=== PATIENT | female | born 1930 | race Caucasian/White ===

== ENCOUNTER 2017-05-06 07:25 | Emergency (ER) | payer MEDICARE, OTHER ==
[~2017-05-06] VITALS: Ht 162.6 cm; Wt 90.0 kg
[~2017-05-06 07:25] MED LIST: AMIODARONE; DOCU-150 PO; ELIQUIS; FURO-151 PO; MEMA10TA11 PO; OMEP20TA80 PO; P20 PO; SERT50TA PO; SUCR1TAB PO
[2017-05-06] MEDS ORDERED: ELIQUIS (08:22)
[2017-05-06] MEDS ORDERED: [UNRECOGNIZED DRUG - OTHER] (08:24)
[2017-05-06] MEDS ORDERED: ONDANSETRON HCL 4MG/2ML VIAL IV STA (08:27)
[2017-05-06] MEDS ORDERED: MORPHINE SULFATE 4 MG/ML CPJ (NOT FOR IM USE) IV STA (08:27)
[2017-05-06] MEDS ORDERED: SODIUM CHLORIDE 0.9% 1,000 ML IV ONE (08:27)
[2017-05-06 08:48] LABS: BASOPHILS % 0.3 % (0.0-2.0); EOSINOPHILS % 0.5 % (0.0-5.0); HEMOGLOBIN. 12.4 g/dL (12.0-16.0); LYMPHOCYTES % 9.5 % (20.0-50.0); MEAN CORPUSCULAR VOLUME 92.2 fL (81.0-99.0); MEAN PLATELET VOLUME 7.5 fl (7.4-10.4); NEUTROPHILS % 83.7 % (40.0-76.0); PLATELET 210 x1000/uL (130-400); RED BLOOD CELL COUNT 4.12 mill/uL (4.2-5.4); RED CELL DISTRIBUTION WIDTH 17.7 % (11.6-14.6)
[2017-05-06 08:54] LABS: INR 1.3; PROTHROMBIN TIME 13.2 sec
[2017-05-06 09:03] LABS: CARBON DIOXIDE 32 mEq/L (21-32); CHLORIDE 105 mEq/L (98-107); TROPONIN I < 0.02 ng/mL (0.00-0.04)
[2017-05-06 09:09] LABS: CLARITY URINE CLEAR (CLEAR); COLOR URINE YELLOW (YELLOW); GLUCOSE URINE NEGATIVE (NEGATIVE); KETONES URINE NEGATIVE (NEGATIVE); LEUKOCYTE ESTERASE URINE TRACE (NEGATIVE); NITRITE URINE POSITIVE (NEGATIVE); OCCULT BLOOD URINE NEGATIVE (NEGATIVE); PH URINE 5.5 (4.5-8.0); PROTEIN URINE TRACE (NEGATIVE); SPECIFIC GRAVITY URINE 1.021 (1.005-1.030)
[2017-05-06] MEDS ORDERED: CEFTRIAXONE 1 G PREMIX 50 ML IV ONE (11:00)
[2017-05-06] MEDS ORDERED: SODIUM CHLORIDE 0.9% 10ML VIAL ONE (13:30)
[2017-05-06] MEDS ORDERED: IOHEXOL-300 100 ML BOTTLE ONE (13:30)
[2017-05-06 15:25] VITALS: BP 134/64
== END 2017-05-06 15:41 | disposition home or self-care (01) ==
LOC: ER 08:15
DX: R11.2 Nausea with vomiting, unspecified (principal); K44.9 Diaphragmatic hernia without obstruction or gangrene; I25.10 Atherosclerotic heart disease of native coronary artery without angina pectoris; E11.9 Type 2 diabetes mellitus without complications; Z95.0 Presence of cardiac pacemaker; Z99.81 Dependence on supplemental oxygen; Z79.01 Long term (current) use of anticoagulants
CPT/HCPCS: 36415; 74177; 80053; 81001; 83690; 84484; 85025; 85610; 87077; 87086; 87186; 96361; 96365; 96375; 99285; A4216; J0696; J2270; J2405; J7030; Q9967; A4315